=== PATIENT | female | born 1945 | race African-American/Black ===

== ENCOUNTER → 2019-07-03 | Outpatient (CLI) | payer OTHER ==
[~2019-07-03] MED LIST: ACETAMINOPHEN325 M1 PO; AMBIEN 10 MG TA10 MG PO; ASPIRIN EC81 M1 PO; BLADDER 2.2 TA1 EACH PO; COUMADIN 5 MG TA5 M1 PO; COUMADIN7.5 MG PO; COZAAR100 MG PO; ENOXAPARIN60 MG/0.6 SUBQ; K-DUR 20 MEQ T20 MEQ PO; LOSARTAN-HCTZ1 EAC1 PO; MEDROL DOSPAK21 TAB PO; NORCO 5-325 TA1 EACH PO; POTASSIUM20 PO; TRAMADOL 50 MG50 MG PO; VALIUM2 MG PO
== END ==
LOC: SJCVC 14:47
DX: I10 Essential (primary) hypertension (principal); Z79.82 Long term (current) use of aspirin; Z79.899 Other long term (current) drug therapy

== ENCOUNTER → 2019-08-02 | Outpatient (CLI) | payer OTHER ==
[~2019-08-02] MED LIST changes: +KATERZIA1 MG/1 ML PO
== END ==
LOC: SJCVCIMAG 09:48
DX: I08.2 Rheumatic disorders of both aortic and tricuspid valves (principal); I27.20 Pulmonary hypertension, unspecified; M79.662 Pain in left lower leg; I10 Essential (primary) hypertension; R00.2 Palpitations; R06.09 Other forms of dyspnea; R53.83 Other fatigue; M79.89 Other specified soft tissue disorders; Z79.82 Long term (current) use of aspirin; Z79.899 Other long term (current) drug therapy; Z88.5 Allergy status to narcotic agent

== ENCOUNTER → 2019-08-09 | Outpatient (CLI) | payer OTHER | LOC: SJCVC 15:22 | DX: R06.09 Other forms of dyspnea (principal); R00.2 Palpitations; R53.83 Other fatigue; E78.00 Pure hypercholesterolemia, unspecified; I10 Essential (primary) hypertension; R60.9 Edema, unspecified; Z79.82 Long term (current) use of aspirin; Z79.899 Other long term (current) drug therapy ==

== ENCOUNTER → 2019-08-16 | Outpatient (CLI) | payer OTHER ==
[~2019-08-16] VITALS: Ht 152.4 cm; Wt 58.5 kg
[2019-08-16 09:49] VITALS: BP 141/76
[2019-08-16 10:07] LABS: HEMATOCRIT 40.1 % (37.0-47.0); HEMOGLOBIN 13.5 gm/dL (12.0-15.0); MCHC 33.7 g/dL (28.0-37.0); MCV 89.1 fL (80.0-100.0); RBC 4.5 mil/uL (4.20-5.00); RDW 12.8 % (10.5-14.5); WBC 4.9 thou/uL (4.0-11.0)
[2019-08-16 10:14] LABS: CALCIUM 9.8 mg/dL (8.5-10.1); CREATININE 0.9 mg/dL (0.6-1.0); POTASSIUM 3.4 mmol/L (3.5-5.1)
--- NOTE | 2019-08-17 09:54 | EKG ---
[facility] [place] [address] ELECTROCARDIOGRAM REPORT Name: SOFIA AHUJAH Room #: REG LIZZ Ken#: [id number] Admission: 08/16/19 Attend Phys: Stephan Hidalgo Discharge: Date of : 43 Report #: [id number] THIS REPORT FOR: cc: Karla Lopez MD, Michelle R. MD Lundgren,Koffi Tavares MD [facility] ~ THIS REPORT FOR: //name// [facility] Test Date: 2019-08-16 Test Time: 09:53:24 Pat Name: OMAR AHUJA Department: Room: Gender: Aircraft Design Engineer: TERRIE : 1945 Requested By: Stephan Hidalgo Order Number: [id number] MD: Koffi Nova Measurements Intervals [place] Rate: 78 P: 43 DC: 147 QRS: -7 QRSD: 79 T: 1 QT: 380 QTc: 433 Interpretive Statements Sinus rhythm Left ventricular hypertrophy Borderline T abnormalities, inferior leads Compared to ECG 03/06/2012 18:55:31 Sinus tachycardia no longer present Electronically Signed On 08-17-2019 9:52:45 CDT by Koffi Nova [email or web address] <ELECTRONICALLY SIGNED> By: Koffi Nova MD, [facility] 08/17/19 [phone] Koffi Nova MD, [facility] /EPI
--- NOTE | 2019-08-20 10:18 | CATHLAB ---
[facility] [place] [address] INVASIVE PROCEDURE REPORT Name: OMAR AHUJA Room #: REG LIZZ Suellen#: [id number] Admission: 08/16/19 Attend Phys: Stephan Hidalgo Discharge: Date of : 43 Report #: [id number] THIS REPORT FOR: cc: Karla Lopez MD, Michelle R. MD Lammoglia, Francisco J. MD ~ APPROVED REPORT Study performed: 08/16/2019 10:37:12 Patient Details Patient Status: Out-Patient Room #: The patient is a 73 year-old female Event Personnel Stephan Hidalgo Digital Content Specialist, Slime Ahumada RN RN, Hao Alexander RTR AnnyubTal Ja'net RTR Monitor Procedures Performed Left Heart Cath w/or w/o Coronaries [id number] [facility] Art Access - R femoral artery* Hemostasis with Manual pressure 96484 Initial Mod Sed Same Phys/QHP Gr5y [id number], supervision of conscious sedation Indication Positive stress test, Chest pain Procedure Narrative The patient was brought electively to the Cardiac Catheterization Laboratory and was prepped and draped in a sterile manner. The Right Groin^ was infiltrated with 1% Lidocaine subcutaneous anesthesia. A PINNACLE 4FR Sheath #[id number] sheath was inserted into the RFA^. Coronary angiography was performed using coronary diagnostic catheters. The right coronary system was accessed and visualized with a JR4 catheter. The left coronary system was accessed and visualized with a JL4 catheter. The left ventricle was accessed and visualized with a ANGLED PIGTAIL catheter. Hemostasis was obtained with manual pressure following sheath removal without any complications. The patient tolerated the procedure well and there were no complications associated with the procedure. There was no hematoma. Intraoperative Conscious Sedation Sedation start time: 11:13 Case end Time: [facility] [address] [place] [address] INVASIVE PROCEDURE REPORT Name: [facility] Room #: [facility] STEPHANIA Ken#: [id number] Admission: 08/16/19 Attend Phys: Stephan Mills Discharge: Date of : 43 Report #: [id number] 11:48 Versed 2 mg Fluoro Time: 2.07 minutes Dose: DAP 1324.40 cGycm2 194 mGy Contrast Type and Amount: Omnipaque 45 ml Coronary Angiography The patient's coronary anatomy is right dominant. Diagnostic Cath Left Main Normal origin and moderate to large caliber bifurcates left anterior descending left circumflex is free of significant lesions or irregularities. LAD Moderate caliber type II vessel which is quite tortuous in its course as it proceeds in the anterior interventricular septum giving septal and diagonal branches. Prior to these origin of a small second septal branches a mild concentric narrowing of less than 30% noted. It is not flow-limiting. The vessel continues on tortuous and terminates as a bifurcating vessel at the left ventricular apex Diagonal 1 Small-caliber vessel without significant high-grade lesions Diagonal 2 Smaller caliber vessel with mild narrowing at its origin but no high-grade lesions are noted. Circumflex Large caliber vessel coursing along the lateral aspect of the left ventricle in a tortuous mode.any significant plaquing or obstructive lesions. The vessel continues after giving rise to a moderate caliber marginal branch is a small posterior wall vessel coursing in the AV groove. OM1 Moderate to large caliber branch coursing on the lateral last heart without significant obstructive lesions noted Right Coronary Large-caliber vessel of normal origin courses in the AV groove posteriorly. It gives rise at the crux of the heart to posterior descending artery and terminates as a small to moderate posterior wall branch without significant high-grade lesions but minimal luminal irregularities R PDA Small-caliber vessel without significant obstructive lesions noted Left Ventriculography Left Ventriculography was not performed. Hemodynamics The aortic pressure is 145/81 mmHg with a mean of 110 mmHg. The left ventricular pressure is 143/3 mmHg with a mean of mmHg. [facility] [address] [place] [address] INVASIVE PROCEDURE REPORT Name: [facility] Room #: REG Luis Alberto.#: [id number] Admission: 08/16/19 Attend Phys: Stephan Mills Discharge: Date of : 43 Report #: [id number] ventricular end diastolic pressure is 15 mmHg. Pullback from the left ventricle to the aorta revealed no gradient across the aortic valve. Conclusion 1. Essentially normal coronary arteries with mild plaquing noted in the mid LAD 2. Tortuous coronary arteries suggestive of hypertensive heart disease 3. Normal hemodynamic Recommendations Cardiac Risk Reduction Program Medical Therapy <ELECTRONICALLY SIGNED> By: Stephan Hidalgo MD 08/20/19 1017 [phone] Stephan Hidalgo MD /INF
== END | disposition home or self-care (01) ==
LOC: CATH 09:20
PROVIDERS: Internal Medicine
DX: R94.39 Abnormal result of other cardiovascular function study (principal); R07.9 Chest pain, unspecified; I25.10 Atherosclerotic heart disease of native coronary artery without angina pectoris; I10 Essential (primary) hypertension; E78.00 Pure hypercholesterolemia, unspecified; E78.5 Hyperlipidemia, unspecified; Z98.890 Other specified postprocedural states; Z79.899 Other long term (current) drug therapy; Z88.8 Allergy status to other drugs, medicaments and biological substances

== ENCOUNTER → 2019-09-05 | Outpatient (CLI) | payer OTHER | LOC: SJCVC 09:56 | DX: I25.10 Atherosclerotic heart disease of native coronary artery without angina pectoris (principal); I10 Essential (primary) hypertension; E78.5 Hyperlipidemia, unspecified; Z79.899 Other long term (current) drug therapy ==

== ENCOUNTER → 2020-05-21 | Outpatient (CLI) | payer OTHER ==
[~2020-05-21] MED LIST changes: +CALCIUM 500-VI1 EAC1 PO; +DAILY MULTIPLE1 EACH PO; +MELOXICAM7.5 MG PO; +VITAMIN D3100 MCG PO
== END ==
LOC: LAB 10:45
PROVIDERS: ATTEND Internal Medicine Gastroenterology
DX: Z01.812 Encounter for preprocedural laboratory examination (principal); Z20.828 Contact with and (suspected) exposure to other viral communicable diseases

== ENCOUNTER → 2020-05-26 | Outpatient (CLI) | payer OTHER ==
[~2020-05-26] VITALS: Ht 152.4 cm; Wt 56.2 kg
--- NOTE | 2020-05-29 10:40 | PATH ---
[facility] [address] [place] [address] PATHOLOGY RPT PROCEDURE Name: OMAR AHUJA Room #: REG LIZZ Luis Alberto.#: [id number] Admission: 05/26/20 Date of : 43 Discharge: Report #: [id number] Path Case #: [id number] [facility] Accession Number: [id number] . 01 Material submitted: . hepatic flexure - BX POLYP HEPATIC FLEXURE . 01 Clinical history: . LOW ANT RESECTION OF RECTOSIGMOID COLON POLYPS . 02 Diagnosis: Polyp, hepatic flexure, endoscopic biopsy: - Tubular adenoma. - Negative for high grade dysplasia. . (IUV:mml; 05/28/2020) QL 05/28/2020 [facility] Local . 02 Electronically signed: . Micaela King MD, Pathologist NPI- [id number] . 01 Gross description: . The specimen is received in formalin, labeled "[place], biopsy polyp hepatic flexure". Received is a segment of pale sanchez soft tissue measuring 0.4 cm in maximum dimensions. The specimen is submitted entirely in cassette A1. (CAA; 05/27/2020) QAC/QAC 05/27/2020 1115 Local . 02 Pathologist provided ICD-10: D12.3 . 02 CPT . 661851 Specimen Comment: A duplicate report has been generated due to demographic updates. Performed at: [address], [place] [id number] MD Ronak Calzada MD Phone: [phone] Performed at: [address] [id number] MD Micaela King MD Phone: [phone]
== END | disposition home or self-care (01) ==
LOC: GI 07:41
PROVIDERS: ATTEND Internal Medicine Gastroenterology
DX: Z12.11 Encounter for screening for malignant neoplasm of colon (principal); Z85.038 Personal history of other malignant neoplasm of large intestine; D12.3 Benign neoplasm of transverse colon; K64.8 Other hemorrhoids; I10 Essential (primary) hypertension; E78.00 Pure hypercholesterolemia, unspecified; Z98.890 Other specified postprocedural states; Z79.899 Other long term (current) drug therapy; Z88.6 Allergy status to analgesic agent; Z98.0 Intestinal bypass and anastomosis status
CPT/HCPCS: 62110; 62900